=== PATIENT | male | born 1970 | race Caucasian/White ===

== ENCOUNTER 2021-09-23 18:41 | Emergency (ER) | payer SELFPAY ==
[~2021-09-23] VITALS: Ht 182.9 cm; Wt 83.9 kg
[2021-09-23 18:55] VITALS: BP 130/78
[2021-09-23] MEDS ORDERED: KETOROLAC TROMETHAMINE INJ 60 MG/2 ML VIAL IM ONE (19:30)
[2021-09-23] MEDS ORDERED: KETOROLAC TROMETHAMINE INJ 30 MG/ML VIAL ONE (19:35)
--- NOTE | 2021-09-23 19:39 | NUR ---
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
[2021-09-23] MEDS ORDERED: NAPR-1009 PO (20:58)
== END 2021-09-23 21:24 | disposition home or self-care (01) ==
LOC: ER 18:49
DX: S93.401A Sprain of unspecified ligament of right ankle, initial encounter (principal); I25.2 Old myocardial infarction; X50.1XXA Overexertion from prolonged static or awkward postures, initial encounter; Y93.89 Activity, other specified; Y92.89 Other specified places as the place of occurrence of the external cause; Y99.8 Other external cause status
CPT/HCPCS: 29515; 73610; 73650; 96372; 99284; J1885